=== PATIENT | male | born 1945 | race Caucasian/White ===

== ENCOUNTER 2020-02-12 14:05 | Emergency (ER) | payer MEDICARE, OTHER ==
[2020-02-12 14:27] VITALS: BP 172/86
[2020-02-12] MEDS ORDERED: HYDROmorphone 0.5 MG/0.5 ML Syringe IVPUSH ONE (14:32)
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
[2020-02-12] MEDS ORDERED: Lactated Ringers 1,000 ML IV SCH (14:45)
[2020-02-12 14:57] VITALS: PULSE 63
[2020-02-12] MEDS ORDERED: Iopamidol 612 MG/ML 100 ML Bottle IV PRN (15:37)
[2020-02-12] MEDS ORDERED: Sodium Chloride 0.9% 10 ML Syringe FLUSH SCH (15:45)
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
== END 2020-02-12 17:09 | disposition home or self-care (01) ==
LOC: JP.ED 14:05
DX: S30.1XXA Contusion of abdominal wall, initial encounter (principal); Z79.4 Long term (current) use of insulin; Z88.1 Allergy status to other antibiotic agents; Z79.899 Other long term (current) drug therapy; W20.8XXA Other cause of strike by thrown, projected or falling object, initial encounter; Y92.009 Unspecified place in unspecified non-institutional (private) residence as the place of occurrence of the external cause
CPT/HCPCS: 36415; 71046; 74177; 80053; 83690; 85027; 96361; 96374; 99283; 99284; J1170; J7050; J7120; Q9967

== ENCOUNTER 2023-02-16 00:10 | Emergency (ER) | payer MEDICARE ==
[2023-02-16] MEDS ORDERED: Aspirin 81 MG Tab.Chew PO ONE (00:25)
[2023-02-16 00:42] LABS: ESTIMATED GFR 48 mL/min (>60); TROPONIN I HIGH SENSITIVITY 14.9 pg/mL (<=60.3)
[2023-02-16 03:04] VITALS: BP 110/58; PULSE 64
== END 2023-02-16 03:49 | disposition home or self-care (01) ==
LOC: JP.ED 00:10
DX: I20.9 Angina pectoris, unspecified (principal); I25.2 Old myocardial infarction; E11.9 Type 2 diabetes mellitus without complications; Z88.0 Allergy status to penicillin; Z79.82 Long term (current) use of aspirin; Z79.4 Long term (current) use of insulin; Z79.899 Other long term (current) drug therapy; Z20.822 Contact with and (suspected) exposure to COVID-19
CPT/HCPCS: 36415; 71045; 71045-26; 80053; 83735; 84484; 85025; 85610; 85730; 86140; 93005; 93010; 99283; 99285; A9270-GY; U0002

== ENCOUNTER 2023-03-10 05:33 | Emergency (ER) | payer MEDICARE ==
[2023-03-10 06:00] LABS: BASOPHILS ABSOLUTE AUTO 0.07 K/uL (0.00-0.10); BASOPHILS PERCENT AUTO 0.9 % (0.1-1.3); EOSINOPHILS ABSOLUTE AUTO 0.79 K/uL (0.00-0.40); HEMATOCRIT 42.1 % (38.4-49.7); HEMOGLOBIN 14.7 g/dL (12.9-16.9); IMMATURE GRAN ABSOLUTE AUTO 0.03 K/uL (0.00-0.23); IMMATURE GRAN PERCENT AUTO 0.4 % (0.0-0.7); LYMPHOCYTES ABSOLUTE AUTO 2.46 K/uL (0.8-3.3); LYMPHOCYTES PERCENT AUTO 31.2 % (11.4-47.7); MEAN CORPUSCULAR HEMOGLOBIN 30.1 pg (31.6-35.5); MEAN CORPUSCULAR HGB CONC 34.9 g/dL (31.6-35.5); MEAN CORPUSCULAR VOLUME 86.3 fL (81.4-99.0); MONOCYTES ABSOLUTE AUTO 0.72 K/uL (0.20-0.90); MONOCYTES PERCENT AUTO 9.1 % (3.3-12.6); NEUTROPHILS ABSOLUTE AUTO 3.82 K/uL (1.0-7.6); NEUTROPHILS PERCENT AUTO 48.4 % (40.0-78.1); PLATELET COUNT,PLT 270 K/uL (130-375); RED BLOOD CELL COUNT 4.88 M/uL (4.14-5.76); WHITE BLOOD CELL COUNT,WBC 7.9 K/uL (3.2-11.0)
[2023-03-10 06:18] LABS: A/G RATIO 1.1 (1.2-2.2); ALANINE AMINOTRANSFERASE,ALT 67 U/L (12-78); ALBUMIN 3.5 g/dL (3.4-5.0); ALKALINE PHOSPHATASE 58 U/L (46-116); ASPARTATE AMNIOTRANSFERASE,AST 33 U/L (15-37); BILIRUBIN TOTAL 0.6 mg/dL (0.2-1.0); BLOOD UREA NITROGEN,BUN 24 mg/dL (7-18); C-REACTIVE PROTEIN 0.07 mg/dL (0.0-0.3); CALCIUM 8.6 mg/dL (8.5-10.1); CARBON DIOXIDE,CO2 23 mmol/L (21-32); CHLORIDE,CL 104 mmol/L (100-108); CREATININE 1.4 mg/dL (0.8-1.3); EST CRCL DRUG DOSING (CG) 49.94 mL/min; ESTIMATED GFR 52 mL/min (>60); GLUCOSE RANDOM 170 mg/dL (74-106); POTASSIUM,K 3.9 mmol/L (3.6-5.2); PROTEIN TOTAL,TP 6.8 g/dL (6.4-8.2); SODIUM,NA 137 mmol/L (140-148); TROPONIN I HIGH SENSITIVITY 13.4 pg/mL (<=60.3)
[2023-03-10 06:22] LABS: ANION GAP 13.9 mmol/L (5.0-14.0)
[2023-03-10] MEDS ORDERED: Magnesium Oxide 400 MG Tab PO ONE (06:51)
[2023-03-10 07:39] VITALS: BP 109/62; PULSE 68
== END 2023-03-10 07:40 | disposition home or self-care (01) ==
LOC: JP.ED 05:33
DX: A08.4 Viral intestinal infection, unspecified (principal); J98.01 Acute bronchospasm; I25.2 Old myocardial infarction; E11.9 Type 2 diabetes mellitus without complications; Z88.0 Allergy status to penicillin; Z88.8 Allergy status to other drugs, medicaments and biological substances; Z79.4 Long term (current) use of insulin; Z79.82 Long term (current) use of aspirin; Z95.5 Presence of coronary angioplasty implant and graft; Z87.891 Personal history of nicotine dependence
CPT/HCPCS: 36415; 71046; 80053; 83735; 84484; 85025; 86140; 93005; 99285; A9270